=== PATIENT | male | born 1960 | race Caucasian/White ===

== ENCOUNTER 2018-01-11 12:49 | Emergency (ER) | payer MEDICAID, OTHER ==
--- NOTE | 2018-01-11 13:19 | RAD ---
PA AND LATERAL VIEWS CHEST: Date: 01/11/18 HISTORY: Dyspnea. FINDINGS/IMPRESSION: The heart size is mildly enlarged. The lungs are expanded without focal areas of consolidation, pneum othorax, shirin pulmonary edema, or pleural effusions. There are degenerative changes in the spine. POS: [facility]
[2018-01-11] MEDS ORDERED: Albuterol Sulfate 2.5 mg/0.5 ml Neb ONE (13:34)
[2018-01-11 13:51] LABS: #Basophils 0.1 thou/uL (0.0-0.2); #Eosinphils 0.3 thou/uL (0.0-0.7); #Lymphocytes 2.1 thou/uL (1.20-3.40); #Monocytes 0.8 thou/uL (0.11-0.59); #Neutrophils 5.8 thou/uL (1.40-6.50); %Basophils 1.2 % (0.0-1.0); %Lymphocytes 22.8 % (21.0-51.0); %Monocytes 8.9 % (0.0-10.0); %Neutrophils 64.2 % (42.0-75.0); Mean Corpuscular HGB CONC 31.8 g/dL (32.0-36.0); Mean Corpuscular Volume 100.8 fl (80.0-94.0); Mean Platelet Volume 8.5 fL (7.4-10.4); Platelet Count 184 thou/uL (130-400); RBC Distribution Width 14.9 % (11.5-14.5); Red Blood Cell (RBC) Count 5.61 mill/uL (4.70-6.10)
[2018-01-11 14:02] LABS: ALT (SGPT) 38 U/L (8-55); AST (SGOT) 22 U/L (5-34); Albumin 3.9 g/dL (3.5-5.0); Alkaline Phosphatase 70 U/L (40-150); Anion Gap 15 mmol/L (10-20); BUN (Urea Nitrogen) 12 mg/dL (8.4-25.7); Bilirubin, Total 0.4 mg/dL (0.2-1.2); Calc. Creatinine Clearance 0 mL/min (70-130); Calcium 9.2 mg/dL (7.8-10.44); Carbon Dioxide 29 mmol/L (22-29); Chloride 103 mmol/L (98-107); Estimated GFR-MDRD 77; Globulin 2.8 g/dL (2.4-3.5); Glucose 83 mg/dL (70-105); Potassium 4.4 mmol/L (3.5-5.1); Protein, Total 6.7 g/dL (6.0-8.3); Sodium 143 mmol/L (136-145)
[2018-01-11 14:07] LABS: CKMB 4.1 ng/mL (0-6.6); Troponin I 0.013 ng/mL (< 0.028)
== END 2018-01-11 15:30 | disposition left against medical advice (07) ==
LOC: MADERS 12:49
DX: J44.1 Chronic obstructive pulmonary disease with (acute) exacerbation (principal); G47.33 Obstructive sleep apnea (adult) (pediatric); F17.210 Nicotine dependence, cigarettes, uncomplicated
CPT/HCPCS: 36415; 71046; 80053; 82553; 83880; 84484; 85025; 85379; 93005; J7611

== ENCOUNTER 2018-01-15 15:38 | Emergency (ER) | payer OTHER ==
[2018-01-15] MEDS ORDERED: methylPREDNISolone Sod Succ/PF 125 MG/2 ML VIAL ONE (16:23)
[2018-01-15 16:30] LABS: #Basophils 0.2 thou/uL (0.0-0.2); #Eosinphils 0.2 thou/uL (0.0-0.7); #Lymphocytes 1.5 thou/uL (1.20-3.40); #Monocytes 0.6 thou/uL (0.11-0.59); #Neutrophils 7.1 thou/uL (1.40-6.50); %Basophils 1.8 % (0.0-1.0); %Eosinophils 1.7 % (0.0-10.0); %Lymphocytes 15.4 % (21.0-51.0); %Monocytes 6.8 % (0.0-10.0); %Neutrophils 74.4 % (42.0-75.0); Mean Corpuscular HGB CONC 32.3 g/dL (32.0-36.0); Mean Corpuscular Hemoglobin 32.7 pg (27.0-31.0); Mean Corpuscular Volume 101.2 fL (78.0-98.0); Platelet Count 178 thou/uL (130-400); RBC Distribution Width 14.9 % (11.5-14.5); Red Blood Cell (RBC) Count 5.52 mill/uL (4.70-6.10); White Blood Cell (WBC) Count 9.5 thou/uL (4.8-10.8)
[2018-01-15 16:36] LABS: ALT (SGPT) 67 U/L (8-55); AST (SGOT) 26 U/L (5-34); Albumin 3.9 g/dL (3.5-5.0); Alkaline Phosphatase 71 U/L (40-150); Anion Gap 15 mmol/L (10-20); BUN (Urea Nitrogen) 14 mg/dL (8.4-25.7); Bilirubin, Total 0.3 mg/dL (0.2-1.2); Calc. Creatinine Clearance 0 mL/min (70-130); Calcium 9.3 mg/dL (7.8-10.44); Carbon Dioxide 29 mmol/L (22-29); Chloride 107 mmol/L (98-107); Estimated GFR-MDRD 78; Globulin 2.7 g/dL (2.4-3.5); Glucose 145 mg/dL (70-105); Potassium 4.1 mmol/L (3.5-5.1); Protein, Total 6.6 g/dL (6.0-8.3); Sodium 147 mmol/L (136-145)
--- NOTE | 2018-01-15 17:20 | RAD ---
TWO VIEWS OF THE CHEST: 01/15/18 COMPARISON: 01/11/18 HISTORY: Shortness of breath. COPD. FINDINGS: Two views of the chest were performed. The lateral view is limited secondary to motion artifact. Ther e is no evidence of consolidation, mass, or pleural effusion. The cardiomediastinal silhouette is upp er limits of normal in size. IMPRESSION: No evidence of acute cardiopulmonary disease. POS: [facility]
[2018-01-15] MEDS ORDERED: Azithromycin 500 MG VIAL ONE (18:03)
[2018-01-15] MEDS ORDERED: Magnesium Sulfate 2 GM/NS 0.9% 50 ML BAG ONE (18:03)
[2018-01-15] MEDS ORDERED: Azithromycin 250 MG TAB ONE (18:59)
== END 2018-01-15 21:15 | disposition short-term general hospital (02) ==
LOC: MADERS 15:38
DX: J44.1 Chronic obstructive pulmonary disease with (acute) exacerbation (principal); I10 Essential (primary) hypertension; G47.30 Sleep apnea, unspecified; F17.210 Nicotine dependence, cigarettes, uncomplicated
CPT/HCPCS: 71046; 80053; 83880; 84484; 85025; 96365; 96375; J0456; J2930; J3475; J7620

== ENCOUNTER 2018-02-19 08:22 | Emergency (ER) | payer OTHER | END 2018-02-19 08:50 | disposition home or self-care (01) | LOC: MADERS 08:22 | DX: M77.12 Lateral epicondylitis, left elbow (principal) | CPT/HCPCS: 99283 ==

== ENCOUNTER 2019-12-30 20:57 | Emergency (ER) | payer SELFPAY ==
[~2019-12-30 20:57] MED LIST: EPINEPHrine 1 MG/10 ML Abboject SYRINGE ONE; Sodium Bicarb 50 MEQ/50 ML Abboject 8.4% SYRINGE ONE
== END 2019-12-31 00:12 | disposition expired ==
LOC: MADERS 20:57
DX: I46.9 Cardiac arrest, cause unspecified (principal); G47.30 Sleep apnea, unspecified; J44.9 Chronic obstructive pulmonary disease, unspecified; F31.9 Bipolar disorder, unspecified
CPT/HCPCS: 92950; J0171